=== PATIENT | female | born 1975 | race Two or more races ===

== ENCOUNTER 2017-12-13 21:24 | Emergency (ER) | payer MEDICAID, OTHER ==
[~2017-12-13] VITALS: Ht 167.6 cm; Wt 72.6 kg
[2017-12-13] MEDS ORDERED: SODIUM CHLORIDE 0.9% 2,000 ML IV ONE (22:00)
[2017-12-13] MEDS ORDERED: InsuLIN REG 1unit/0.01ml Soln (100units/ml) IV ONE (22:00)
[2017-12-13] MEDS ORDERED: ONDANSETRON HCL 4 MG/2 ML VIAL ONE (22:34)
[2017-12-13] MEDS ORDERED: MORPHINE SULFATE 4 MG/ML SYR/VIAL IV ONE (22:45)
[2017-12-13] MEDS ORDERED: ONDANSETRON HCL 4 MG/2 ML VIAL IV ONE (22:45)
[2017-12-13 22:51] LABS: Basophils # (auto) 0 uL; Basophils % (auto) 0.4 % (0.0-2.0); Eosinophils # (auto) 0 uL; Eosinophils % (auto) 0.2 % (0.0-7.0); Hematocrit 46.5 % (36.0-46.0); Hemoglobin 15.7 g/dL (12.2-16.2); Lymphocytes # (auto) 1.8 uL; Lymphocytes % (auto) 19.5 % (10.0-50.0); Mean Corpuscular Hemoglobin 26.5 pg (28.0-32.0); Mean Corpuscular Hgb Conc. 33.9 g/dL (32.0-36.0); Mean Corpuscular Volume 78.4 fL (80.0-100.0); Monocytes # (auto) 0.3 uL; Monocytes % (auto) 3.7 % (0.0-12.0); Neutrophils # (auto) 7.1 uL; Neutrophils % (auto) 76.2 % (37.0-80.0); Nucleated Red Blood Cells % 0.1 %; Platelet Count (auto) 250 10^3/uL (140-450); Red Blood Cells 5.93 10^6/uL (4.0-5.20); Red Cell Distribution Width 14.4 % (11.8-14.3); White Blood Cell 9.3 10^3/uL (4.4-10.8)
[2017-12-13 23:16] LABS: Alanine Aminotransferase 22 U/L (13-56); Albumin 3.3 g/dL (3.4-5.0); Anion Gap 11 (5-15); Aspartate Aminotransferase 17 U/L (15-37); BUN/Creatinine Ratio 29.4; Blood Urea Nitrogen 55 mg/dL (7-18); Calcium 8.7 mg/dL (8.5-10.1); Carbon Dioxide 30 mmol/L (21-32); Chloride 87 mmol/L (98-107); GFR African American 38 mL/min; GFR Non-African American 31 mL/min; Magnesium 2.6 mg/dL (1.6-2.6); Potassium 4.3 mmol/L (3.5-5.1); Sodium 128 mmol/L (136-145)
[2017-12-13 23:20] LABS: Glucose 497 mg/dL (74-106)
[2017-12-13 23:25] LABS: Alkaline Phosphatase 103 U/L (45-117); Bilirubin, Total 0.7 mg/dL (0.2-1.0)
[2017-12-14 00:49] VITALS: BP 149/83
[2017-12-14] MEDS ORDERED: SODIUM CHLORIDE 0.9% 1,000 ML IV ONE (01:00)
== END 2017-12-14 02:04 | disposition home or self-care (01) ==
LOC: ER 21:30
DX: E11.65 Type 2 diabetes mellitus with hyperglycemia (principal); E87.1 Hypo-osmolality and hyponatremia; N28.9 Disorder of kidney and ureter, unspecified; Z88.1 Allergy status to other antibiotic agents
CPT/HCPCS: 36415; 71045; 80053; 82010; 82962; 83605; 83735; 84484; 85025; 94761; 96361; 96374; 96375; 99285; J1815; J2270; J2405; J7030

== ENCOUNTER 2018-01-13 11:57 | Emergency (ER) | payer MEDICAID ==
[~2018-01-13] VITALS: Ht 167.6 cm; Wt 74.8 kg
[2018-01-13 13:06] VITALS: BP 165/84
[2018-01-13 13:06] LABS: Basophils # (auto) 0 uL; Eosinophils # (auto) 0.2 uL; Lymphocytes # (auto) 1.3 uL; Monocytes # (auto) 0.3 uL; Monocytes % (auto) 6.5 % (0.0-12.0); Platelet Count (auto) 303 10^3/uL (140-450); White Blood Cell 4.7 10^3/uL (4.4-10.8)
[2018-01-13 13:08] LABS: Basophils % (auto) 0.3 % (0.0-2.0); Eosinophils % (auto) 3.3 % (0.0-7.0); Hematocrit 31.2 % (36.0-46.0); Hemoglobin 10.1 g/dL (12.2-16.2); Lymphocytes % (auto) 26.9 % (10.0-50.0); Mean Corpuscular Hemoglobin 25.7 pg (28.0-32.0); Mean Corpuscular Hgb Conc. 32.4 g/dL (32.0-36.0); Mean Corpuscular Volume 79.4 fL (80.0-100.0); Neutrophils # (auto) 2.9 uL; Nucleated Red Blood Cells % 0.2 %; Red Blood Cells 3.93 10^6/uL (4.0-5.20); Red Cell Distribution Width 15.1 % (11.8-14.3)
[2018-01-13 13:23] LABS: Albumin 2.6 g/dL (3.4-5.0); Calcium 8.8 mg/dL (8.5-10.1); INR 0.88 (0.9-1.15); Partial Thromboplastin Time 25.7 sec (23.78-33.04); Potassium 4.6 mmol/L (3.5-5.1); Prothrombin Time 9.5 sec (9.27-12.13)
[2018-01-13 13:25] LABS: Bilirubin, Total 0.2 mg/dL (0.2-1.0); Total Protein 7.2 g/dL (6.4-8.2)
[2018-01-13 13:43] LABS: Urine Bacteria FEW /hpf (None Seen); Urine Blood 1+ /uL (Negative); Urine Specific Gravity 1.011 (1.001-1.035); Urine WBC 16 /hpf (0 - 5)
[2018-01-13] MEDS ORDERED: cefTRIAXone 1GM/50ML D5W 50 ML IV ONE (14:15)
[2018-01-13] MEDS ORDERED: AZITHROMYCIN 500MG/ 250ML 250 ML IV ONE (14:15)
[2018-01-13] MEDS ORDERED: FUROSEMIDE 40 MG/4 ML VIAL IV ONE (14:15)
[2018-01-13] MEDS ORDERED: cefTRIAXone SOD 1,000 MG VL ONE (14:20)
== END 2018-01-13 14:54 | disposition home or self-care (01) ==
LOC: ER 11:57
DX: J18.9 Pneumonia, unspecified organism (principal); E11.22 Type 2 diabetes mellitus with diabetic chronic kidney disease; I13.0 Hypertensive heart and chronic kidney disease with heart failure and stage 1 through stage 4 chronic kidney disease, or unspecified chronic kidney disease; N18.9 Chronic kidney disease, unspecified; I50.9 Heart failure, unspecified; R11.0 Nausea; M54.9 Dorsalgia, unspecified; Z88.1 Allergy status to other antibiotic agents
CPT/HCPCS: 36415; 71045; 74176; 80053; 81001; 83605; 83880; 84484; 84702; 85025; 85610; 85730; 87040; 96365; 96368; 96375; 99285; J0456; J0696; J1940

== ENCOUNTER 2018-04-16 08:49 | Inpatient (IN) | payer MEDICAID ==
[~2018-04-16] VITALS: Ht 162.6 cm; Wt 86.7 kg
[2018-04-16 09:55] LABS: Basophils # (auto) 0 uL; Basophils % (auto) 0.2 % (0.0-2.0); Eosinophils # (auto) 0 uL; Hemoglobin 12.2 g/dL (12.2-16.2); Lymphocytes # (auto) 0.4 uL; Neutrophils % (auto) 92.3 % (37.0-80.0); Platelet Count (auto) 196 10^3/uL (140-450); Red Blood Cells 4.65 10^6/uL (4.0-5.20)
[2018-04-16 09:56] LABS: Eosinophils % (auto) 0.3 % (0.0-7.0); Hematocrit 37.9 % (36.0-46.0); Lymphocytes % (auto) 5.4 % (10.0-50.0); Mean Corpuscular Hemoglobin 26.2 pg (28.0-32.0); Mean Corpuscular Hgb Conc. 32.1 g/dL (32.0-36.0); Mean Corpuscular Volume 81.5 fL (80.0-100.0); Monocytes # (auto) 0.1 uL; Monocytes % (auto) 1.8 % (0.0-12.0); Neutrophils # (auto) 6.8 uL; Nucleated Red Blood Cells % 0.1 %; Red Cell Distribution Width 14.8 % (11.8-14.3); White Blood Cell 7.4 10^3/uL (4.4-10.8)
[2018-04-16] MEDS ORDERED: PROMETHAZINE HCL 25 MG/ML 1ML ONE (10:07)
[2018-04-16] MEDS ORDERED: SODIUM CHLORIDE 0.9% 1,000 ML IVB ONE (10:09)
[2018-04-16 10:12] LABS: Albumin 2.4 g/dL (3.4-5.0); Calcium 7.5 mg/dL (8.5-10.1)
[2018-04-16] MEDS ORDERED: HYDROmorphone HCL 2 MG/ML VL IV ONE ×2 (10:15→14:00)
[2018-04-16] MEDS ORDERED: PROMETHAZINE HCL 25 MG/ML 1ML IV ONE ×2 (10:15→14:00)
[2018-04-16 10:26] LABS: BUN/Creatinine Ratio 21.4; Potassium 5.6 mmol/L (3.5-5.1)
[2018-04-16 10:27] LABS: Bilirubin, Total 0.4 mg/dL (0.2-1.0); Total Protein 6.8 g/dL (6.4-8.2)
[2018-04-16] MEDS ORDERED: SODIUM CHLORIDE 0.9% 1,000 ML IV ONE ×3 (11:45→13:29)
[2018-04-16 13:02] LABS: Amphetamine Screen, Urine NEGATIVE (NEGATIVE); Barbiturate Scree,Urine NEGATIVE (NEGATIVE); Benzodiazephine Screen, Urine NEGATIVE (NEGATIVE); Cannabinoid Screen, Urine NEGATIVE (NEGATIVE); Cocaine Screen, Urine NEGATIVE (NEGATIVE); Opiate Scree,Urine NEGATIVE (NEGATIVE); Phencyclidine Screen, Urine NEGATIVE (NEGATIVE)
[2018-04-16 13:09] LABS: Urine Bacteria FEW /hpf (None Seen); Urine Blood 1+ /uL (Negative); Urine Mucus FEW (None Seen); Urine Specific Gravity 1.017 (1.001-1.035); Urine WBC 4 /hpf (0 - 5)
[2018-04-16] MEDS ORDERED: InsuLIN REG 1unit/0.01ml Soln (100units/ml) IV ONE (13:30)
[2018-04-16] MEDS ORDERED: cloNIDine HCL 0.1 MG TAB PO ONE (14:00)
[2018-04-16 14:20] LABS: Magnesium 1.9 mg/dL (1.6-2.6)
[2018-04-16 14:40] LABS: Beta HCG, Quantitative < 1 mlU/mL (1-3); Thyroid Stimulating Hormone 0.31 uIU/mL (0.358-3.74)
[2018-04-16] MEDS ORDERED: InsuLIN R (HUMAN) 100 UNITS in SODIUM CHL 0.9% 99 ML IV SCH (15:07)
[2018-04-16] MEDS ORDERED: SODIUM CHLORIDE 0.9% 1,000 ML IV SCH ×3 (15:07→21:07)
[2018-04-16] MEDS ORDERED: DEXTROSE (50%) 50ML SYRG IV PRN ×2 (15:15→16:00)
[2018-04-16 15:54] LABS: Basophils # (auto) 0 uL; Eosinophils # (auto) 0 uL; Eosinophils % (auto) 0.1 % (0.0-7.0); Lymphocytes # (auto) 0.2 uL; Lymphocytes % (auto) 3.3 % (10.0-50.0)
[2018-04-16 15:56] LABS: Basophils % (auto) 0.2 % (0.0-2.0); Hematocrit 33.9 % (36.0-46.0); Hemoglobin 11.1 g/dL (12.2-16.2); Mean Corpuscular Hemoglobin 26.2 pg (28.0-32.0); Mean Corpuscular Hgb Conc. 32.7 g/dL (32.0-36.0); Mean Corpuscular Volume 80.1 fL (80.0-100.0); Monocytes # (auto) 0.1 uL; Monocytes % (auto) 1.9 % (0.0-12.0); Neutrophils # (auto) 6.5 uL; Neutrophils % (auto) 94.5 % (37.0-80.0); Platelet Count (auto) 211 10^3/uL (140-450); Red Blood Cells 4.23 10^6/uL (4.0-5.20); Red Cell Distribution Width 14.1 % (11.8-14.3); White Blood Cell 6.9 10^3/uL (4.4-10.8)
[2018-04-16] MEDS ORDERED: MORPHINE SULFATE 4 MG/ML SYR/VIAL IV PRN (16:00)
[2018-04-16] MEDS ORDERED: INSULIN LANTUS (GLARGINE) 1 /0.01ml (100units/ml) SC ONE (16:00)
[2018-04-16] MEDS ORDERED: LABETALOL HCL 5 MG/ML ML 20ML VIAL IV PRN (16:00)
[2018-04-16] MEDS ORDERED: NITROGLYCERIN 0.4 MG SL TAB SL PRN (16:00)
[2018-04-16 16:04] LABS: Calcium 6.9 mg/dL (8.5-10.1); Phosphorus 3.3 mg/dL (2.5-4.90)
[2018-04-16] MEDS ORDERED: ACCU-CHEK COMFORT CURVE STRIP VI SCH (16:30)
[2018-04-16] MEDS: ACCU-CHEK COMFORT CURVE STRIP VI SCH ×2 (16:33→20:55)
[2018-04-16] MEDS: InsuLIN REG 1unit/0.01ml Soln (100units/ml) SC SCH ×2 (16:39→20:55)
[2018-04-16] MEDS: cefTRIAXone 1GM/50ML D5W 50 ML IV SCH (16:46)
--- NOTE | 2018-04-16 17:25 | NUR ---
RECEIVED REPORT FROM BRET IN ER, WILL AWAIT PATIENT.
[2018-04-16] MEDS: SOD CHL 0.45% 1,000 ML IV SCH ×2 (18:16→23:09)
--- NOTE | 2018-04-16 18:29 | NUR ---
RECEIVED PATIENT TO THE FLOOR PATIENT FEELING DROWSY HOWEVER IS ALERT AND ORIENTED. BED LOCKED IN LOWEST POSITION WITH TWO SIDE RAILS UP AND CALL LIGHT IN REACH. PATIENT RECEIVING .45 NS AT 100ML . INSTRUCTED THE PATIENT ON THE PLAN OF CARE AND TO CALL IF ANYTHING IS NEEDED. WILL CONTINUE TO MONITOR Q HOURLY
--- NOTE | 2018-04-16 18:33 | NUR ---
INSTRUCTED THE PATIENT TO HAVE SOMEONE BRING IN HOME MEDICATION LIST. PATIENT VERBALIZED UNDERSTANDING.
--- NOTE | 2018-04-16 19:40 | NUR ---
OPENING NOTES RECEIVED REPORT FROM DAY SHIFT NURSE. PT IS ALERT AND ORIENTED X 4 WITH NO S/S OF DISTRESS BUT SLIGHT NAUSEA. BED IS IN LOWEST POSITION WITH SIDE RAILS UP X 2. CALL LIGHT IS WITH IN REACH AND BED BRAKES ARE LOCKED. POC DISCUSSED WITH PATIENT.
[2018-04-16 20:00] VITALS: BP 142/73
[2018-04-16 21:51] LABS: BUN/Creatinine Ratio 19.2; Calcium 6.8 mg/dL (8.5-10.1); Potassium 4.7 mmol/L (3.5-5.1)
[2018-04-16 22:00] VITALS: BP 130/56
[2018-04-16] MEDS: METOPROLOL TARTRATE 25 MG TAB PO SCH (22:35)
[2018-04-16] MEDS: METOCLOPRAMIDE HCL 10 MG TAB PO SCH (22:36)
[2018-04-16] MEDS ORDERED: HYDROcodone-ACET 7.5/325MG TAB PO ONE (23:45)
[2018-04-17] MEDS: ONDANSETRON HCL 4 MG/2 ML VIAL IV PRN ×2 (00:48→13:04)
[2018-04-17] MEDS: ACCU-CHEK COMFORT CURVE STRIP VI SCH ×5 (00:49→16:00)
[2018-04-17] MEDS: InsuLIN REG 1unit/0.01ml Soln (100units/ml) SC SCH ×5 (03:53→16:00)
[2018-04-17 05:00] VITALS: BP 120/64
[2018-04-17] MEDS: SOD CHL 0.45% 1,000 ML IV SCH ×2 (05:11→11:17)
[2018-04-17] MEDS: METOCLOPRAMIDE HCL 10 MG TAB PO SCH ×2 (05:33→17:15)
[2018-04-17 05:53] LABS: Hemoglobin 10.2 g/dL (12.2-16.2)
[2018-04-17 05:56] LABS: Hematocrit 30.5 % (36.0-46.0); Mean Corpuscular Hemoglobin 26.3 pg (28.0-32.0); Mean Corpuscular Hgb Conc. 33.5 g/dL (32.0-36.0); Mean Corpuscular Volume 78.5 fL (80.0-100.0); Platelet Count (auto) 179 10^3/uL (140-450); Red Blood Cells 3.89 10^6/uL (4.0-5.20); Red Cell Distribution Width 14.5 % (11.8-14.3); White Blood Cell 9.2 10^3/uL (4.4-10.8)
[2018-04-17 05:57] LABS: Basophils % (manual) 0 (0.0-2.0); Blast Cells 0; Eosinophils % (manual) 0 (0-7); Metamyelocytes % 0; Myelocytes % 0; Promyelocytes % 0; Reactive Lymphocytes 0
[2018-04-17 06:34] LABS: BUN/Creatinine Ratio 19.7; Calcium 6.6 mg/dL (8.5-10.1); Phosphorus 2.2 mg/dL (2.5-4.90); Potassium 4.4 mmol/L (3.5-5.1)
[2018-04-17 06:54] LABS: Band Neutrophils % (manual) 2; Lymphocytes % (manual) 19 (10.0-50.0); Monocytes % (manual) 5 (0-12)
--- NOTE | 2018-04-17 07:20 | NUR ---
Opening Shift Note Assumed care of patient, awake and alert. No S/S of distress/SOB or pain. Instructed on POC and to call for assist PRN, will continue to monitor for changes Q1hr and PRN.
[2018-04-17 08:00] VITALS: BP 136/71
[2018-04-17] MEDS: cefTRIAXone 1GM/50ML D5W 50 ML IV SCH (09:20)
[2018-04-17] MEDS: METOPROLOL TARTRATE 25 MG TAB PO SCH (09:21)
[2018-04-17] MEDS ORDERED: PANTOPRAZOLE 40 MG/10 ML VIAL IV SCH (10:00)
[2018-04-17] MEDS ORDERED: INSULIN LANTUS (GLARGINE) 1 /0.01ml (100units/ml) SC SCH (10:00)
[2018-04-17 14:22] VITALS: BP 134/71
[2018-04-17 16:19] VITALS: BP 130/76
[2018-04-17] MEDS ORDERED: LISI10TA6 PO (16:37)
[2018-04-17] MEDS ORDERED: HYDR-4296 PO (16:37)
[2018-04-17] MEDS ORDERED: INSLANTI SC (16:38)
[2018-04-17] MEDS ORDERED: GLIP-115 PO (16:39)
--- NOTE | 2018-04-17 17:01 | NUR ---
Rhodes catheter dc'd Order to discontinue rhodes catheter. Rhodes dc'd with clean technique following deflation of balloon. Patient tolerated well with no complaints of pain. Continue care.
[2018-04-17 18:14] VITALS: BP 134/71
--- NOTE | 2018-04-17 18:40 | NUR ---
Discharge from Tele Discharge instructions given as ordered. Encourage to follow up with PMD as instructed. All questions and concerns addressed. Patient verbalized understanding. IV removed with catheter intact, pressure dressing applied, rhodes catheter removed. Telemetry unit returned to ICU. Patient taken to vehicle via wheelchair with all personal belongings, accompanied by staff and family member. No distress noted at time of departure.
[2018-04-22] MEDS ORDERED: METO-158 PO (14:25)
[2018-04-23] MEDS ORDERED: AML5T PO (14:34)
[2018-04-23] MEDS ORDERED: INSREGI SC (14:34)
[2018-04-23] MEDS ORDERED: FUR20T PO (14:34)
[2018-04-23] MEDS ORDERED: HYDR-4296 PO (14:34)
[2018-04-23] MEDS ORDERED: INSLANTI SC (14:34)
== END 2018-04-17 18:45 | disposition home or self-care (01) | DRG 420 ==
LOC: ER 08:49 → OVERFLOW 16:02 → TELE-WESTW 18:00
PROVIDERS: ADMIT Nurse Practitioner Acute Care; ATTEND Internal Medicine
DX: E10.10 Type 1 diabetes mellitus with ketoacidosis without coma (principal); E43 Unspecified severe protein-calorie malnutrition; E10.21 Type 1 diabetes mellitus with diabetic nephropathy; K31.84 Gastroparesis; E87.5 Hyperkalemia; E10.43 Type 1 diabetes mellitus with diabetic autonomic (poly)neuropathy; E10.22 Type 1 diabetes mellitus with diabetic chronic kidney disease; N18.3 Chronic kidney disease, stage 3 (moderate); A08.4 Viral intestinal infection, unspecified; I12.9 Hypertensive chronic kidney disease with stage 1 through stage 4 chronic kidney disease, or unspecified chronic kidney disease; D63.1 Anemia in chronic kidney disease; Z88.1 Allergy status to other antibiotic agents; Z68.32 Body mass index [BMI] 32.0-32.9, adult; Z79.4 Long term (current) use of insulin; Z79.899 Other long term (current) drug therapy; Z98.51 Tubal ligation status; N39.0 Urinary tract infection, site not specified
CPT/HCPCS: 36415; 36600; 51702; 71045; 80048; 80053; 80307; 81001; 82010; 82805; 82962; 83036; 83690; 83735; 83930; 84100; 84443; 84702; 85007; 85025; 85027; 93005; 93306; 96361; 96374; 96375; 99291; C9113; G0378; J0696; J1815; J2405